=== PATIENT | male | born 1985 | race Caucasian/White ===

== ENCOUNTER 2023-02-23 09:26 | Outpatient (CLI) | payer BC, SELFPAY | END 2023-02-23 09:27 | disposition home or self-care (01) | PROVIDERS: Visit Provider Physician Assistant Medical | DX: Z00.00 Encounter for general adult medical examination without abnormal findings (principal); Z13.6 Encounter for screening for cardiovascular disorders; Z13.9 Encounter for screening, unspecified | CPT/HCPCS: 80053; 80061 ==